=== PATIENT | male | born 1975 | race Caucasian/White ===

== ENCOUNTER 2019-01-25 21:39 | Emergency (ER) | payer OTHER ==
[2019-01-25] MEDS ORDERED: Sodium Chloride 0.9% 10 ML Syringe FLUSH PRN (22:06)
--- NOTE | 2019-01-25 22:22 | EDM.PDOC ---
ED HPI GENERAL MEDICAL PROBLEM - General Chief Complaint: General Stated Complaint: DISORIENTATED/NOT ACTING NORMAL Time Seen by Provider: 01/25/19 21:47 Source of Information: Reports: Patient History Limitations: Reports: No Limitations - History of Present Illness INITIAL COMMENTS - FREE TEXT/NARRATIVE: The patient presents because he was disorientated. 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 The rig is moving and they are breaking the rig down and moving it soon. The patient says he has been up for nearly 2 days strait with little naps here and there. He was slightly off balance when walking back to his room according to the triage nurse. The patient says he is really tired. He is diabetic on oral meds but his sugars have been okay. He denies headache, fever, chills, cough, chest pain , shortness of breath, abdominal pain, nausea or vomiting. He has no numbness or weakness. He is alert and orientated. Onset: Gradual Duration: Hour(s): Severity: Moderate Improves with: Reports: None Worsens with: Reports: None Associated Symptoms: Reports: No Other Symptoms Bilateral Foot Pain Score (Numeric/FACES): 6 - Related Data Allergies Allergy/AdvReac Type Severity Reaction Status Date / Time No Known Allergies Allergy Verified 01/25/19 21:55 Home Meds: Home Meds glipiZIDE [Glucotrol Xl] 5 mg PO DAILY 01/25/19 [History] metFORMIN [Glucophage XR] 500 mg PO BID 01/25/19 [History] Past Medical History Neurological History: Reports: Neuropathy, Diabetic Endocrine/Metabolic History: Reports: Diabetes, Type II Social & Family History - Tobacco Use Smoking Status *Q: Never Smoker - Caffeine Use Caffeine Use: Reports: Coffee, Tea - Recreational Drug Use Recreational Drug Use: No ED ROS GENERAL - Review of Systems Review Of Systems: See Below Constitutional: Reports: No Symptoms HEENT: Reports: No Symptoms Respiratory: Reports: No Symptoms Cardiovascular: Reports: No Symptoms Endocrine: Reports: No Symptoms GI/Abdominal: Reports: No Symptoms : Reports: No Symptoms Musculoskeletal: Reports: No Symptoms Skin: Reports: No Symptoms Neurological: Reports: Confusion. Denies: Dizziness, Headache, Numbness, Weakness ED EXAM, GENERAL - Physical Exam Exam: See Below Exam Limited By: No Limitations General Appearance: Alert, No Apparent Distress Ears: Normal External Exam Nose: Normal Inspection Head: Atraumatic, Normocephalic Neck: Normal Inspection Respiratory/Chest: No Respiratory Distress, Lungs Clear, Normal Breath Sounds Cardiovascular: Regular Rate, Rhythm, No Edema, No Murmur GI/Abdominal: Soft, Non-Tender, No Organomegaly, No Mass Back Exam: Normal Inspection Extremities: Normal Inspection Neurological: Alert, Oriented, No Motor/Sensory Deficits Course - Vital Signs Last Recorded V/S: Last Vital Signs Temp 98.4 F 01/25/19 21:58 Pulse 85 01/25/19 21:58 Resp 20 01/25/19 21:58 BP 163/109 H 01/25/19 21:58 Pulse Ox 95 01/25/19 21:58 - Orders/Labs/Meds Orders: Active Orders 24 hr Category Date Time Status Cardiac Monitoring [RC] . DIRECTED Care 01/25/19 22:06 Active EKG Documentation Completion [RC] STAT Care 01/25/19 22:07 Active Peripheral IV Care [RC] . DIRECTED Care 01/25/19 22:07 Active Head wo Cont [CT] Stat Exams 01/25/19 22:07 Taken Sodium Chloride 0.9% [Saline Flush] Med 01/25/19 22:06 Active 10 ml FLUSH ASDIRECTED PRN Peripheral IV Insertion Adult [OM.PC] Stat Oth 01/25/19 22:06 Ordered Medication Orders Sodium Chloride (Saline Flush) 10 ml FLUSH ASDIRECTED PRN PRN Reason: Keep Vein Open Last Admin: 01/25/19 22:21 Dose: 10 ml Labs: Laboratory Tests 01/25/19 01/25/19 01/25/19 Range/Units 21:53 22:20 22:20 WBC 6.40 (4.23-9.07) K/mm3 RBC 5.39 (4.63-6.08) M/mm3 Hgb 16.6 (13.7-17.5) gm/L Hct 49.0 (40.1-51.0) % MCV 90.9 (79.0-92.2) fl MCH 30.8 (25.7-32.2) pg MCHC 33.9 (32.2-35.5) g/dl RDW Std Deviation 43.7 (35.1-43.9) fL Plt Count 214 (163-337) K/mm3 MPV 9.2 L (9.4-12.3) fl Neut % (Auto) 40.8 (34.0-67.9) % Lymph % (Auto) 49.1 (21.8-53.1) % Hill % (Auto) 7.7 (5.3-12.2) % Eos % (Auto) 0.8 (0.8-7.0) Baso % (Auto) 0.3 (0.1-1.2) % Neut # (Auto) 2.62 (1.78-5.38) K/mm3 Lymph # (Auto) 3.14 (1.32-3.57) K/mm3 Hill # (Auto) 0.49 (0.30-0.82) K/mm3 Eos # (Auto) 0.05 (0.04-0.54) K/mm3 Baso # (Auto) 0.02 (0.01-0.08) K/mm3 Sodium 147 H (136-145) mEq/L Potassium 4.3 (3.5-5.1) mEq/L Chloride 110 H (98-107) mEq/L Carbon Dioxide 27 (21-32) mEq/L Anion Gap 14.3 (5-15) BUN 14 (7-18) mg/dL Creatinine 0.9 (0.7-1.3) mg/dL Est Cr Clr Drug Dosing 125.19 mL/min Estimated GFR (MDRD) > 60 (>60) mL/min BUN/Creatinine Ratio 15.6 (14-18) Glucose 133 H (74-106) mg/dL POC Glucose 125 H (70-105) mg/dL Calcium 9.8 (8.5-10.1) mg/dL Magnesium 2.1 (1.8-2.4) mg/dl Total Bilirubin 0.2 (0.2-1.0) mg/dL AST 56 H (15-37) U/L ALT 124 H (16-63) U/L Alkaline Phosphatase 80 (46-116) U/L Troponin I < 0.017 (0.00-0.056) ng/mL Total Protein 8.1 (6.4-8.2) g/dl Albumin 3.8 (3.4-5.0) g/dl Globulin 4.3 gm/dL Albumin/Globulin Ratio 0.9 L (1-2) TSH 3rd Generation 0.451 (0.358-3.74) uIU/mL Ethyl Alcohol 0.37 (0.00) gm% Meds: Medications Generic Name Dose Route Start Last Admin Trade Name Rafael PRN Reason Stop Dose Admin Sodium Chloride 10 ml 01/25/19 22:06 01/25/19 22:21 Saline Flush FLUSH 10 ml ASDIRECTED PRN Administration Keep Vein Open - Re-Assessments/Exams Free Text/Narrative Re-Assessment/Exam: 01/25/19 22:30 I have ordered an IV saline lock, labs, and a CT of his head. 01/25/19 23:33 His EKG shows a NSR with a RBBB and no acute changes. The CT of his head shows nothing acute. His CBC looks good. His Na was a little elevated at 147. His glucose was elevated at 133. His AST is elevated at 56. His ALT was elevated at 124. His troponin was negative. His ETOH was 0.37. The patient denied he was drinking earlier. He is resting now. 01/26/19 00:19 I talked to him and [place] and will need to get a ride back. He has rested here for a few hours. I will discharge him home. Departure - Departure Time of Disposition: 00:25 Disposition: Home, Self-Care 01 Condition: Good Clinical Impression: Alcohol intoxication Qualifiers: Complication of substance-induced condition: uncomplicated Qualified Code(s): F10.920 - Alcohol use, unspecified with intoxication, uncomplicated - Discharge Information *PRESCRIPTION DRUG MONITORING PROGRAM REVIEWED*: Not Applicable *COPY OF PRESCRIPTION DRUG MONITORING REPORT IN PATIENT ERIC: Not Applicable Referrals: PCP,None [Ordering Only Provider] - Forms: ED Department Discharge Additional Instructions: Go home and rest. Do not drink alcohol. Please return if you are worse. - My Orders Last 24 Hours: My Active Orders 01/25/19 22:06 Cardiac Monitoring [RC] . DIRECTED Sodium Chloride 0.9% [Saline Flush] 10 ml FLUSH ASDIRECTED PRN Peripheral IV Insertion Adult [OM.PC] Stat 01/25/19 22:07 EKG Documentation Completion [RC] STAT Peripheral IV Care [RC] . DIRECTED Head wo Cont [CT] Stat - Assessment/Plan Last 24 Hours: My Active Orders 01/25/19 22:06 Cardiac Monitoring [RC] . DIRECTED Sodium Chloride 0.9% [Saline Flush] 10 ml FLUSH ASDIRECTED PRN Peripheral IV Insertion Adult [OM.PC] Stat 01/25/19 22:07 EKG Documentation Completion [RC] STAT Peripheral IV Care [RC] . DIRECTED Head wo Cont [CT] Stat
--- NOTE | 2019-01-26 06:51 | CT ---
Head CT Technique: Multiple axial sections through the brain were obtained. Intravenous contrast was not utilized. Comparison: No prior intracranial imaging is available. Findings: Ventricles along with basal cisterns and sulci over the convexities are within normal limits for the patient's age. No abnormal parenchymal densities are seen. No evidence of intracranial hemorrhage. No midline shift or mass effect is seen. Bone window settings were reviewed which show no acute calvarial abnormality. Visualized sinuses are clear. Impression: 1. Nothing acute is appreciated on noncontrast head CT exam. Diagnostic code #1 I agree with preliminary report from [facility], finalized on 01/25/19, 11:52 PM Central Time
== END 2019-01-26 01:13 | disposition home or self-care (01) ==
LOC: JD.ED 21:39
DX: F10.929 Alcohol use, unspecified with intoxication, unspecified (principal); E11.40 Type 2 diabetes mellitus with diabetic neuropathy, unspecified; Z79.84 Long term (current) use of oral hypoglycemic drugs; Y90.9 Presence of alcohol in blood, level not specified
CPT/HCPCS: 36415; 70450; 80053; 82962; 83735; 84443; 84484; 85025; 93005; 99285; G0480; 93010; 99283